=== PATIENT | male | born 1990 | race African-American/Black ===

== ENCOUNTER 2017-05-19 11:19 | Emergency (ER) | payer OTHER ==
[~2017-05-19] VITALS: Ht 182.8 cm; Wt 72.6 kg
[~2017-05-19 11:19] MED LIST: ADDERALL XR30 MG PO; ADDERALL20 MG PO; AMBIEN10 M1 PO; AMOXICILLIN500 MG PO; AMOXIL500 MG PO; BACTRIM DS 8001 TA1 PO; IBU-8800 MG PO; MOTRIN600 MG PO; MOTRIN800 MG PO; NAPROSYN500 MG PO; NKHM; OMNICEF300 MG PO; ORPHENADRINE C100 M1 PO; TYLENOL W/CODEI1 TA2 PO; TYLENOL325 M1 PO; VICODIN 5/500 505 MG PO
[2017-05-19] MEDS ORDERED: DAILY VITE WIT1 EACH PO (11:47)
[2017-05-19] MEDS ORDERED: Motrin,Rufen800 MG PO (12:50)
== END 2017-05-19 13:55 | disposition home or self-care (01) ==
LOC: ED 11:19
DX: S66.811A Strain of other specified muscles, fascia and tendons at wrist and hand level, right hand, initial encounter (principal); F17.200 Nicotine dependence, unspecified, uncomplicated; Z79.899 Other long term (current) drug therapy; X50.1XXA Overexertion from prolonged static or awkward postures, initial encounter; Y93.89 Activity, other specified; Y92.89 Other specified places as the place of occurrence of the external cause; Y99.9 Unspecified external cause status

== ENCOUNTER 2017-10-27 15:59 | Emergency (ER) | payer OTHER ==
[~2017-10-27] VITALS: Ht 182.8 cm; Wt 70.3 kg
[~2017-10-27 15:59] MED LIST changes: +DAILY VITE WIT1 EACH PO; +Motrin,Rufen800 MG PO
[2017-10-27] MEDS ORDERED: CEFADROXIL500 M1 PO (16:12)
== END 2017-10-27 17:08 | disposition home or self-care (01) ==
LOC: ED 15:59
DX: S51.811A Laceration without foreign body of right forearm, initial encounter (principal); Z79.899 Other long term (current) drug therapy; W22.8XXA Striking against or struck by other objects, initial encounter; Y93.89 Activity, other specified; Y92.69 Other specified industrial and construction area as the place of occurrence of the external cause; Y99.8 Other external cause status